=== PATIENT | female | born 1985 | race American Indian/Alaskan Native ===

== ENCOUNTER 2018-03-26 12:53 | Outpatient (CLI) | payer MEDICAID | END 2018-03-26 14:40 | disposition home or self-care (01) | LOC: TRG 12:53 | PROVIDERS: ATTEND Obstetrics & Gynecology | DX: Z34.93 Encounter for supervision of normal pregnancy, unspecified, third trimester (principal); Z3A.37 37 weeks gestation of pregnancy | CPT/HCPCS: 59025 ==

== ENCOUNTER 2018-04-09 20:33 | Outpatient (CLI) | payer MEDICAID ==
[2018-04-14 07:21] VITALS: BP 122/80
== END 2018-04-09 23:00 | disposition home or self-care (01) ==
LOC: TRG 20:33
PROVIDERS: ATTEND Obstetrics & Gynecology
DX: O62.9 Abnormality of forces of labor, unspecified (principal); Z3A.39 39 weeks gestation of pregnancy
CPT/HCPCS: 59025

== ENCOUNTER 2019-01-05 14:13 | Emergency (ER) | payer MEDICAID ==
[2019-01-05 14:33] VITALS: BP 117/75
--- NOTE | 2019-01-05 14:38 | Emergency Department Report ---
Blank Doc - Documentation Documentation: 33 y/o female presents to ed c/o right arm pain and lower back pain after GLF on tile surface a couple days ago while refilling a drink Plan xray
[2019-01-05 15:38] LABS: HCG Qualitative,Urine Negative (Negative)
[2019-01-05] MEDS ORDERED: TORADOL IM ONE (15:50)
[2019-01-05] MEDS ORDERED: TORADOL ONE (15:53)
--- NOTE | 2019-01-05 16:37 | Emergency Department Report ---
ED General Adult HPI - General Chief complaint: Pain General Stated complaint: CHEST PAIN/BODY PAIN Time Seen by Provider: 01/05/19 14:29 Source: patient Mode of arrival: Ambulatory Limitations: No Limitations - History of Present Illness Initial comments: Patient is a 33-year-old female who had a fall in a grocery store 2 days ago. Patient has pain and bruising to the distal right forearm as well as some low back pain. Patient states that she's had some headaches but denies hitting her head or loss of consciousness. Patient has no nausea vomiting or neck pain at this time. Patient states that he aches and pains in the wrist and lower back are 6 out of 10 in severity. Severity scale (0 -10): 10 - Related Data Home Medications Medication Instructions Recorded Confirmed Last Taken Nexium 1 tab PO QDAY 04/09/18 04/14/18 04/13/18 12:00 Previous Rx's Medication Instructions Recorded Last Taken Type Ibuprofen [Motrin 800 MG tab] 800 mg PO Q8HR PRN #30 tablet 04/14/18 Unknown Rx Lidocain2.5%/Prilocai2.5% [Emla] 5 gm TP ONCE PRN #1 tube 04/14/18 Unknown Rx Docusate Sodium [Colace] 100 mg PO BID PRN #60 capsule 04/15/18 Unknown Rx Ferrous Sulfate [Feosol 325 MG tab] 325 mg PO BID #60 tablet 04/15/18 Unknown Rx Ibuprofen [Motrin] 800 mg PO Q8HR PRN #20 tablet 01/05/19 Unknown Rx methOCARBAMOL [Robaxin TAB] 500 mg PO Q6H PRN #15 tablet 01/05/19 Unknown Rx traMADol [Ultram] 50 mg PO Q6HR PRN #12 tablet 01/05/19 Unknown Rx Allergies Allergy/AdvReac Type Severity Reaction Status Date / Time No Known Allergies Allergy Verified 04/14/18 06:53 ED Review of Systems ROS: Stated complaint: CHEST PAIN/BODY PAIN Other details as noted in HPI Comment: Unobtainable due to pts medical conditions ED Past Medical Hx - Past Medical History Hx Hypertension: No Hx Congestive Heart Failure: No Hx Diabetes: No Hx Deep Vein Thrombosis: No Hx Renal Disease: No Hx Sickle Cell Disease: No Hx Seizures: No Hx Asthma: No Hx COPD: No Hx HIV: No - Surgical History Past Surgical History?: No - Social History Smoking Status: Never Smoker Substance Use Type: None - Medications Home Medications: Home Medications Medication Instructions Recorded Confirmed Last Taken Type Nexium 1 tab PO QDAY 04/09/18 04/14/18 04/13/18 12:00 History Ibuprofen [Motrin 800 MG tab] 800 mg PO Q8HR PRN #30 tablet 04/14/18 Unknown Rx Lidocain2.5%/Prilocai2.5% [Emla] 5 gm TP ONCE PRN #1 tube 04/14/18 Unknown Rx Docusate Sodium [Colace] 100 mg PO BID PRN #60 capsule 04/15/18 Unknown Rx Ferrous Sulfate [Feosol 325 MG tab] 325 mg PO BID #60 tablet 04/15/18 Unknown Rx Ibuprofen [Motrin] 800 mg PO Q8HR PRN #20 tablet 01/05/19 Unknown Rx methOCARBAMOL [Robaxin TAB] 500 mg PO Q6H PRN #15 tablet 01/05/19 Unknown Rx traMADol [Ultram] 50 mg PO Q6HR PRN #12 tablet 01/05/19 Unknown Rx ED Physical Exam - General Limitations: No Limitations General appearance: alert, in no apparent distress - Head Head exam: Present: atraumatic, normocephalic - Eye Eye exam: Present: normal appearance - ENT ENT exam: Present: mucous membranes moist - Neck Neck exam: Present: normal inspection - Respiratory Respiratory exam: Present: normal lung sounds bilaterally. Absent: respiratory distress, wheezes, rales, rhonchi - Cardiovascular Cardiovascular Exam: Present: regular rate, normal rhythm. Absent: systolic murmur, diastolic murmur, rubs, gallop - GI/Abdominal GI/Abdominal exam: Present: soft, normal bowel sounds - Extremities Exam Extremities exam: Present: normal inspection, tenderness (patient's right distal forearm shows a bruise spray with some mild swelling. Patient is able to supinate and pronate the wrist.) - Back Exam Back exam: Present: normal inspection, tenderness (generalized lumbar spine tenderness.) - Neurological Exam Neurological exam: Present: alert, oriented X3 - Psychiatric Psychiatric exam: Present: normal affect, normal mood - Skin Skin exam: Present: warm, dry, intact, normal color. Absent: rash ED Course Vital Signs 01/05/19 14:30 Temperature 97.4 F L Pulse Rate 73 Respiratory 16 Rate Blood Pressure 117/75 O2 Sat by Pulse 100 Oximetry ED Medical Decision Making - Radiology Data interpreted by me: X-ray of the right forearm and lumbar spine show no acute process Critical care attestation.: If time is entered above; I have spent that time in minutes in the direct care of this critically ill patient, excluding procedure time. ED Disposition Clinical Impression: Fall Qualifiers: Encounter type: initial encounter Qualified Code(s): W19.XXXA - Unspecified fall, initial encounter Lumbar strain Qualifiers: Encounter type: initial encounter Qualified Code(s): S39.012A - Strain of muscle, fascia and tendon of lower back, initial encounter Forearm contusion Qualifiers: Encounter type: initial encounter Laterality: right Qualified Code(s): S50.11XA - Contusion of right forearm, initial encounter Disposition: DC- TO HOME OR SELFCARE Is pt being admited?: No Does the pt Need Aspirin: No Condition: Stable Instructions: Musculoskeletal Pain (ED), RICE Therapy (ED) Referrals: CHASE CELESTE MD [Staff Physician] - as needed Time of Disposition: 16:52
--- NOTE | 2019-01-05 17:48 | XRay Report ---
FINAL REPORT EXAM: XR SPINE LUMBOSACRAL 2-3V HISTORY: fall on floor/back pain TECHNIQUE: Lumbar spine 3 views PRIORS: None. FINDINGS: Vertebral bodies demonstrate normal height and alignment. The disc spaces are within normal limits. There is no evidence of spondylolisthesis. Transverse and spinous processes are intact SI joints are unremarkable. IMPRESSION: Negative lumbar spine series
--- NOTE | 2019-01-05 17:49 | XRay Report ---
FINAL REPORT EXAM: XR FOREARM RT HISTORY: fall pain TECHNIQUE: Two views of the right forearm PRIORS: None. FINDINGS: No fracture is identified. The joint spaces are within normal limits. No focal bony lesion identified . No radiopaque foreign body seen. IMPRESSION: Negative no acute abnormality.
== END 2019-01-05 16:58 | disposition home or self-care (01) ==
LOC: ED 14:13
DX: S39.012A Strain of muscle, fascia and tendon of lower back, initial encounter (principal); S50.11XA Contusion of right forearm, initial encounter; R51 Headache; W18.30XA Fall on same level, unspecified, initial encounter; Y93.89 Activity, other specified; Y99.8 Other external cause status; Y92.512 Supermarket, store or market as the place of occurrence of the external cause
CPT/HCPCS: 72100; 73090; 81025; 96372; 99283; J1885

== ENCOUNTER 2019-06-28 08:13 | Emergency (ER) | payer MEDICAID ==
[2019-06-28 08:22] VITALS: BP 140/87
--- NOTE | 2019-06-28 09:55 | Emergency Department Report ---
ED Extremity Problem HPI - General Chief complaint: Extremity Problem,Nontraumatic Stated complaint: LT ARM/SHOULDER/NECK/BACK PAIN Time Seen by Provider: 06/28/19 09:24 Source: patient Mode of arrival: Ambulatory Limitations: No Limitations - History of Present Illness Initial comments: Patient is a 34-year-old female who is here secondary to left shoulder pain. Patient states that she has pain with rotating the shoulder. Patient is being present for 6 weeks. Patient denies any injury. Patient denies fevers chills nausea vomiting cough cold or congestion. Patient states she saw her primary care physician and was placed on Motrin versus a help the pain. - Related Data Home Medications Medication Instructions Recorded Confirmed Last Taken Nexium 1 tab PO QDAY 04/09/18 04/14/18 04/13/18 12:00 Previous Rx's Medication Instructions Recorded Last Taken Type Lidocain2.5%/Prilocai2.5% [Emla] 5 gm TP ONCE PRN #1 tube 04/14/18 Unknown Rx Docusate Sodium [Colace] 100 mg PO BID PRN #60 capsule 04/15/18 Unknown Rx Ferrous Sulfate [Feosol 325 MG tab] 325 mg PO BID #60 tablet 04/15/18 Unknown Rx Ibuprofen [Motrin] 800 mg PO Q8HR PRN #20 tablet 01/05/19 Unknown Rx methOCARBAMOL [Robaxin TAB] 500 mg PO Q6H PRN #15 tablet 01/05/19 Unknown Rx traMADol [Ultram] 50 mg PO Q6HR PRN #12 tablet 01/05/19 Unknown Rx Ketorolac [Toradol] 10 mg PO Q6H PRN #12 tablet 06/28/19 Unknown Rx methOCARBAMOL [Robaxin TAB] 500 mg PO Q6H PRN #14 tablet 06/28/19 Unknown Rx traMADol [Ultram] 50 mg PO Q6HR PRN #10 tablet 06/28/19 Unknown Rx Allergies Allergy/AdvReac Type Severity Reaction Status Date / Time No Known Allergies Allergy Verified 04/14/18 06:53 ED Review of Systems ROS: Stated complaint: LT ARM/SHOULDER/NECK/BACK PAIN Other details as noted in HPI Comment: All other systems reviewed and negative ED Past Medical Hx - Past Medical History Previous Medical History?: No Hx Hypertension: No Hx Congestive Heart Failure: No Hx Diabetes: No Hx Deep Vein Thrombosis: No Hx Renal Disease: No Hx Sickle Cell Disease: No Hx Seizures: No Hx Asthma: No Hx COPD: No Hx HIV: No - Surgical History Past Surgical History?: No - Social History Smoking Status: Never Smoker Substance Use Type: None - Medications Home Medications: Home Medications Medication Instructions Recorded Confirmed Last Taken Type Nexium 1 tab PO QDAY 04/09/18 04/14/18 04/13/18 12:00 History Lidocain2.5%/Prilocai2.5% [Emla] 5 gm TP ONCE PRN #1 tube 04/14/18 Unknown Rx Docusate Sodium [Colace] 100 mg PO BID PRN #60 capsule 04/15/18 Unknown Rx Ferrous Sulfate [Feosol 325 MG tab] 325 mg PO BID #60 tablet 04/15/18 Unknown Rx Ibuprofen [Motrin] 800 mg PO Q8HR PRN #20 tablet 01/05/19 Unknown Rx methOCARBAMOL [Robaxin TAB] 500 mg PO Q6H PRN #15 tablet 01/05/19 Unknown Rx traMADol [Ultram] 50 mg PO Q6HR PRN #12 tablet 01/05/19 Unknown Rx Ketorolac [Toradol] 10 mg PO Q6H PRN #12 tablet 06/28/19 Unknown Rx methOCARBAMOL [Robaxin TAB] 500 mg PO Q6H PRN #14 tablet 06/28/19 Unknown Rx traMADol [Ultram] 50 mg PO Q6HR PRN #10 tablet 06/28/19 Unknown Rx ED Physical Exam - General Limitations: No Limitations General appearance: alert, in no apparent distress - Head Head exam: Present: atraumatic, normocephalic - Eye Eye exam: Present: normal appearance - ENT ENT exam: Present: mucous membranes moist - Neck Neck exam: Present: normal inspection - Respiratory Respiratory exam: Present: normal lung sounds bilaterally. Absent: respiratory distress, wheezes, rales, rhonchi - Cardiovascular Cardiovascular Exam: Present: regular rate, normal rhythm. Absent: systolic murmur, diastolic murmur, rubs, gallop - GI/Abdominal GI/Abdominal exam: Present: soft, normal bowel sounds. Absent: distended, tenderness, guarding, rebound - Extremities Exam Extremities exam: Present: normal inspection - Expanded Upper Extremity Exam Left Shoulder Exam: Present: normal inspection. Absent: full ROM (patient has decreased range of motion with active ranging secondary to pain. Passively I am able to move the shoulder but she has a great deal of pain when the shoulder is rotating behind her.), tenderness, swelling, deformity, crepidus, tenderness over AC joint - Back Exam Back exam: Present: normal inspection - Neurological Exam Neurological exam: Present: alert, oriented X3 - Psychiatric Psychiatric exam: Present: normal affect, normal mood - Skin Skin exam: Present: warm, dry, intact, normal color. Absent: rash ED Course Vital Signs 06/28/19 08:20 Temperature 97.9 F Pulse Rate 67 Respiratory 18 Rate Blood Pressure 140/87 O2 Sat by Pulse 100 Oximetry ED Medical Decision Making - Medical Decision Making Patient likely with a rotator cuff injury. Patient will be referred to orthopedics. Patient is not medical emergency however she has Medicaid and has no co-pay. Patient will be treated. Critical care attestation.: If time is entered above; I have spent that time in minutes in the direct care of this critically ill patient, excluding procedure time. ED Disposition Clinical Impression: Rotator cuff injury Qualifiers: Encounter type: initial encounter Laterality: left Qualified Code(s): S46.002A - Unspecified injury of muscle(s) and tendon(s) of the rotator cuff of left shoulder, initial encounter Disposition: Z-01 MED SCREENING EXAM-CONT Is pt being admited?: No Does the pt Need Aspirin: No Condition: Stable Instructions: Rotator Cuff Injury (ED) Referrals: CHASE CELESTE MD [Staff Physician] - 3-5 Days Time of Disposition: 09:55
== END 2019-06-28 10:03 | disposition home or self-care (01) ==
LOC: ED 08:13
DX: S46.002A Unspecified injury of muscle(s) and tendon(s) of the rotator cuff of left shoulder, initial encounter (principal); Z79.899 Other long term (current) drug therapy; X58.XXXA Exposure to other specified factors, initial encounter; Y93.89 Activity, other specified; Y92.89 Other specified places as the place of occurrence of the external cause; Y99.8 Other external cause status
CPT/HCPCS: 99282